=== PATIENT | female | born 1985 | race Caucasian/White ===

== ENCOUNTER 2023-12-02 10:03 | Emergency (ER) | payer BC, SELFPAY ==
[2023-12-02 10:04] VITALS: BP 137/86
--- NOTE | 2023-12-02 10:40 | ED.MUSCINJ ---
HPI-Injury
General
Chief Complaint: Musculo-Skeletal Complaint
Source: patient
Exam Limitations: none
Time Seen by Provider: 12/02/23 10:20
Travel History
Have you had any contact with someone who has COVID-19?: No
Do you have any symptoms of coronavirus? Fever > 100 degrees, chills, cough, shortness of breath, sore throat, loss of taste or smell, muscle aches, or headache?: No
History of Present Illness-Injury
Initial Injury comments:
38-year-old female presents complaining of left-sided neck pain worsening since 2 days ago. She was doing overhead dumbbell press in the gym and felt some discomfort right after she finished. Since then her pain has been getting worse. She denies
any arm numbness or weakness. No chest pain or shortness of breath. Hurts to move. Hurts to lay flat. No other complaints at this time
Past History
Past History
ED Past Medical History: None
ED Past Surgical History: None
Social History
Tobacco: Non-smoker
Drug: None
Personal:
Living: with family
Phy Exam
Physical Exam
Physical Exam:
General: Well-appearing female no respiratory distress
HEENT: Normocephalic atraumatic neck is supple
Musculoskeletal exam: Tender over the left paraspinous area cervical spine the radius the superior shoulder and the medial scapula. She has good extension and flexion of her neck however lateral bending to the left is very painful.
Neurologic: Good strength and sensation to the upper extremities
MDM/Problems Addressed
Differential Diagnosis Includes:
Neck pain. Consider cervical strain versus radiculopathy. Do not suspect bony injury.
Exam most consistent with cervical strain perhaps of trapezius muscle. Recommended continued NSAID use warm compresses and will prescribe Flexeril. Discussed role for x-rays however do not think this is bony injury.
*Critical Care Note
Total Time (30-74mins, 75-104mins- exclusive of procedures): Not Applicable
ED Attending Note
-
Portions of this chart may have been created with voice recognition software.� Occasional wrong word or��sound alike� substitutions may have occurred due to the inherent limitations of voice recognition software.
Discharge Plan
Departure
Patient Disposition: Home (Routine Discharge)
Date of Disposition: 12/02/23
Time of Disposition: 10:43
Patient with high blood pressure during this ER visit?: No
Discharge Problem:
Cervical strain
Instructions: Muscle and Bone Pain (DC)
Prescriptions:
New
cyclobenzaprine 10 mg tablet
10 mg PO TID PRN (Reason: muscle spasm) Qty: 10 0RF
No Action
amoxicillin-pot clavulanate 1 TABLET tablet
1 tab PO Q12 Qty: 14 0RF
Referrals:
Sarahi Tao DO [Family Provider] -
Activity Restrictions/Additional Instructions:
Continue with ibuprofen 600 mg every 6 or 8 hours. Continue with warm compresses. Use muscle relaxers as needed for spasm. Return here for worsening symptoms otherwise follow-up with family doctor
Interventions
Interventions:
*ED COVID-19 Vaccine History Last Done: 12/02/23 10:04
*Nursing Disposition Last Done: 12/02/23 10:55
ED-Musculoskeletal Assessment Last Done: 12/02/23 10:51
Discharge Date and Time
Discharge Date/Time: 12/02/23 10:55
== END 2023-12-02 10:55 | disposition home or self-care (01) ==
LOC: EMR 10:03
PROVIDERS: EMERGENCY PHYSICIAN Emergency Medicine; FAMILY PHYSICIAN Family Medicine
DX: S16.1XXA Strain of muscle, fascia and tendon at neck level, initial encounter (principal); X50.1XXA Overexertion from prolonged static or awkward postures, initial encounter
CPT/HCPCS: 99283

== ENCOUNTER → 2024-05-19 08:02 | Outpatient (REF) | payer OTHER, SELFPAY | LOC: WDC 08:02 | PROVIDERS: ATTENDING PHYSICIAN Obstetrics & Gynecology Gynecology; FAMILY PHYSICIAN Emergency Medicine | DX: Z12.31 Encounter for screening mammogram for malignant neoplasm of breast (principal); Z80.3 Family history of malignant neoplasm of breast | CPT/HCPCS: 77063; 77067 ==

== ENCOUNTER → 2024-05-25 10:23 | Outpatient (REF) | payer OTHER, SELFPAY | LOC: WDC 10:23 | PROVIDERS: ATTENDING PHYSICIAN Obstetrics & Gynecology Gynecology; FAMILY PHYSICIAN Emergency Medicine | DX: R92.8 Other abnormal and inconclusive findings on diagnostic imaging of breast (principal) | CPT/HCPCS: 76642 ==

== ENCOUNTER 2024-07-12 18:51 | Emergency (ER) | payer OTHER, SELFPAY ==
[2024-07-12 18:59] VITALS: BP 135/83
[2024-07-12 19:21] LABS: % Basophils 0.6 % (0-2); % Eosinophils 1.2 % (0-6); % Immature Granulocytes 0.2 % (0-0.5); % Lymphocytes 33.8 % (20.5-51.1); % Monocytes 6.2 % (1.7-9.3); Absolute Basophils 0.1 10^3/uL (0-0.2); Absolute Eosinophils 0.1 10^3/uL (0-0.7); Absolute Lymphocytes 3.5 10^3/uL (1.2-3.4); Absolute Monocytes 0.7 10^3/uL (0.1-0.6); Absolute Neutrophils 6.1 10^3/uL (1.4-6.5); Hematocrit 40.4 % (37.0-47.0); Hemoglobin 13.5 g/dL (12.0-16.0); Mean Corp Hgb Conc. 33.4 g/dL (33.0-37.0); Mean Corpuscular Hgb 29.4 pg (27.0-31.0); Mean Platelet Volume 11.1 fL (7.4-10.4); Nucleated Red Blood Cells % 0 %; Platelet Count 327 10^3/uL (130-400); Red Blood Cell Count 4.59 10^6/uL (4.20-5.40); Red Cell Dist. Width 13.4 % (11.5-14.5); White Blood Cell Count 10.4 10^3/uL (4.8-10.8)
[2024-07-12 19:34] LABS: ALT (SGPT) 21 U/L (0-35); AST (SGOT) 27 U/L (14-36); Albumin 4.6 g/dl (3.5-5.0); Alkaline Phosphatase 76 U/L (38-126); Blood Urea Nitrogen 13 mg/dl (7-17); Calcium 10.1 mg/dl (8.4-10.2); Carbon Dioxide 27 mmol/L (22-30); Chloride 103 mmol/L (98-107); Glucose 90 mg/dl (70-99); Lipase 126 U/L (23-300); Potassium 4.4 mmol/L (3.5-5.1); Sodium 139 mmol/L (135-145); Total Bilirubin 0.5 mg/dl (0.2-1.3); Total Protein 7.2 g/dl (6.3-8.2); eGFR > 60.00
--- NOTE | 2024-07-12 20:47 | ED.GENMED ---
History of Present Illness
General
Chief Complaint: Abdominal Pain
Time Seen by Provider: 07/12/24 20:24
History of Present Illness
History of Present Illness:
38-year-old female presents to the emergency department for evaluation of acute onset of right upper quadrant abdominal pain that began approximate 1 to 2 hours ago. She vomited profusely in the emergency department waiting room and states the pain
improved thereafter. No fevers or chills. Denies diarrhea or steatorrhea. She notes that she is on a GLP-1 agonist and increased her dose approximately 1 month ago. No history of abdominal surgery
Past History
Past History
ED Past Medical History: None
ED Past Surgical History: None
Social History
Tobacco: Non-smoker
Drug: None
Personal:
Living: with family
Review of Systems
Review of Systems
Allergies reviewed?: Yes
All Other Systems: ROS reviewed and negative except as documented in HPI and ROS
Phy Exam
Physical Exam
Physical Exam:
GEN: Well appearing, NAD, WDWN
HEENT: Oral mucosa moist, no scleral icterus
Cardiac: Regular rate
Lung: No respiratory distress, no tachypnea
Abdomen: Soft, minimal epigastric tenderness, otherwise grossly nontender with no rigidity or peritoneal signs
MSK: No gross deformity or injuries
Skin: Good color, no pallor or jaundice, no rashes
Neuro: AO x3, moves all extremities freely
Psych: Calm, cooperative
Course
Orders/Labs/Results
Orders:
Orders
07/12/24 18:57
Test Result ONCE
07/12/24 19:08
Complete Blood Count/With Diff Urgent
Comprehensive Metabolic Panel Urgent
HCG, Serum Qualitative Screen Urgent
Lipase Urgent
07/12/24 20:29
US Abdomen Complete/Upper Urgent
Comment:
Reason For Exam: RUQ pain
Abnormal Lab Results
07/12/24
19:08
MPV 11.1 H fL
(7.4-10.4)
Absolute Lymphs (auto) 3.5 H 10^3/uL
(1.2-3.4)
Absolute Monos (auto) 0.7 H 10^3/uL
(0.1-0.6)
07/12/24 19:08
07/12/24 19:08
Vital Signs
Initial and Last Documented VS:
Initial Vital Signs
Temp Pulse Resp BP Pulse Ox
98.5 F 60 18 135/83 100
07/12/24 18:59 07/12/24 18:59 07/12/24 18:59 07/12/24 18:59 07/12/24 18:59
Last Documented Vital Signs
Temp Pulse Resp BP Pulse Ox
98.5 F 60 18 135/83 100
07/12/24 18:59 07/12/24 18:59 07/12/24 18:59 07/12/24 18:59 07/12/24 18:59
MDM/Problems Addressed
MDM/Problems Addressed:
Ultrasound reveals biliary sludge and gallstones. While this may be a product of her GLP-1, cannot discount organic gallstone disease. Recommend she discontinue her GLP-1 in the interim until she follows up with general surgery to discuss
definitive management plan. No indication of cholecystitis that would warrant admission
*Critical Care Note
Total Time (30-74mins, 75-104mins- exclusive of procedures): Not Applicable
ED Attending Note
-
Portions of this chart may have been created with voice recognition software.� Occasional wrong word or��sound alike� substitutions may have occurred due to the inherent limitations of voice recognition software.
Discharge Plan
Departure
Patient Disposition: Home (Routine Discharge)
Date of Disposition: 07/12/24
Time of Disposition: 21:33
Patient with high blood pressure during this ER visit?: No
Discharge Problem:
Biliary colic
Instructions: Gallstones (DC), Low-fat diet
Prescriptions:
No Action
amoxicillin-pot clavulanate 1 TABLET tablet
1 tab PO Q12 Qty: 14 0RF
cyclobenzaprine 10 mg tablet
10 mg PO TID PRN (Reason: muscle spasm) Qty: 10 0RF
Referrals:
Leana Baldwin MD [Family Provider] -
Lj Varner MD [Active] - Call in 1-3 days for appt
Activity Restrictions/Additional Instructions:
Call surgery office tomorrow
Adhere to a low fat diet until surgery follow up
Consider stopping or reducing your Zepbound until you have seen the surgery team
Interventions
Interventions:
*Risk Screen - Suicide Last Done: 07/12/24 18:59
*General Assessment Last Done: 07/12/24 18:59
ED- Fall Risk Assessment Last Done: 07/12/24 20:13
*ED COVID-19 Vaccine History Last Done: 07/12/24 18:59
VJ-Docqao-Ytfmcarbqb Assessment Last Done: 07/12/24 20:13
Discharge Date and Time
Print Language: CROATIAN
[2024-07-12 21:21] LABS: HCG, Serum Qualitative Screen Negative
[2024-07-12 21:43] VITALS: BP 128/74
== END 2024-07-12 22:09 | disposition home or self-care (01) ==
LOC: EMR 18:51
PROVIDERS: Emergency Medicine; EMERGENCY PHYSICIAN Emergency Medicine; FAMILY PHYSICIAN Emergency Medicine
DX: K80.70 Calculus of gallbladder and bile duct without cholecystitis without obstruction (principal); R10.11 Right upper quadrant pain
CPT/HCPCS: 99284; 76700; 80053; 83690; 84703; 85025

== ENCOUNTER 2024-07-20 22:53 | Day surgery (SDC) | payer OTHER, SELFPAY ==
[2024-07-20] VITALS (7 sets, daily range): BP systolic 91–128; BP diastolic 51–95
--- NOTE | 2024-07-20 20:06 | ED.GENMED ---
History of Present Illness
General
Chief Complaint: Abdominal Pain
Source: patient
Exam Limitations: none
Time Seen by Provider: 07/20/24 19:50
History of Present Illness
History of Present Illness:
This is a 38 year old female that comes in with c/o abd pain. Patient is due to have her Gallbladder out on Jul 31. Tonight around 5pm states that she c/o bd pain and kept getting worse. States that she is vomiting, feels SOB with the pain
and dizzy. Denies any fever, chills, chest pain, diarrhea, headache, urinary burning.
Past History
Past History
ED Past Medical History: GERD and Other (Migraines, )
ED Past Surgical History: None
Social History
Tobacco: Non-smoker
Alcohol: None
Drug: None
Personal:
Living: with family
Review of Systems
Review of Systems
All Other Systems: ROS reviewed and negative except as documented in HPI and ROS
Constitutional: Reports no symptoms; Denies fever or chills
EENT: Reports no symptoms
Respiratory: Reports trouble breathing (with pain); Denies cough
Cardiac: Reports no symptoms; Denies chest pain
ABD/GI: Reports abdominal pain, nausea and vomiting; Denies diarrhea
: Reports no symptoms; Denies dysuria, frequency or urgency
Musculoskeletal: Reports no symptoms
Skin: Reports no symptoms
Neurological: Reports dizzy; Denies headache
Psychiatric: Reports no symptoms
Phy Exam
General Physical Exam
General Presentation: moderate distress
General age: appears stated age
General Skin: cool and pale
General Habitus: normal
General Mental: alert
General Hydration: appears well hydrated
ENT Exam
ENT Exam: TM's normal, pharynx normal and neck supple
Eye Exam
Eye Exam: EOMI
Cardiovascular Exam
Cardiovascular Exam: no edema, no murmur, normal peripheral pulses and bradycardia
Pulmonary Exam
Pulmonary Exam: lungs clear, no respiratory distress, no rales, chest non tender, no crackles, no rhonchi, no wheezing and no cough
Gastrointestinal Exam
Gastrointestinal Exam: normal bowel sounds, soft, no organomegaly, no pulsatile mass, non distended and tender (Epigastric and right upper abd pain)
Musculoskeletal Exam
Musculoskeletal Exam: full ROM and no edema
Skin Exam
Skin Exam: no rash, no petechia, pallor and other (Cool)
Psychiatric Exam
Psychiatric Exam: normal mood/affect
Course
Orders/Labs/Results
Orders:
Orders
07/20/24 20:05
Urinalysis Reflex To Culture Urgent
0.9% Sodium Chloride 1000 ml [Nss] 1,000 ml IV BOLUS
HYDROmorphone [Dilaudid] 1 mg IV NOW STA
Ondansetron Injectable [Zofran] 4 mg IV NOW STA
07/20/24 20:06
Test Result ONCE
US Abdomen Limited Urgent
Reason For Exam: Upper right abd pain, CHOLELITHIASIS
07/20/24 20:16
Complete Blood Count/With Diff Urgent
Comprehensive Metabolic Panel Urgent
HCG, Serum Qualitative Screen Urgent
Lipase Urgent
07/20/24 22:04
Piperacillin/Tazo 3.375 Gram [Zosyn] 3.375 gram in 50 ml IV NOW
Abnormal Lab Results
07/20/24
20:16
RBC 4.01 L 10^6/uL
(4.20-5.40)
Hgb 11.6 L g/dL
(12.0-16.0)
Hct 33.9 L %
(37.0-47.0)
MPV 11.7 H fL
(7.4-10.4)
Absolute Lymphs (auto) 3.9 H 10^3/uL
(1.2-3.4)
Glucose 122 H mg/dl
(70-99)
AST 73 H U/L
(14-36)
ALT 42 H U/L
(0-35)
07/20/24 20:16
07/20/24 20:16
H/H slightly low. Hyperglycemia, AST/ALT elevation. Lipase normal at 136. HCG negative.
Vital Signs
Initial and Last Documented VS:
Initial Vital Signs
Temp Pulse Resp BP Pulse Ox
98.0 F 51 14 93/51 100
07/20/24 19:44 07/20/24 19:44 07/20/24 19:44 07/20/24 19:44 07/20/24 19:44
Last Documented Vital Signs
Temp Pulse Resp BP Pulse Ox
98 F 39 15 111/64 100
07/20/24 21:00 07/20/24 21:45 07/20/24 21:45 07/20/24 21:30 07/20/24 20:14
MDM/Problems Addressed
Differential Diagnosis Includes:
gallbladder disease,
MDM/Problems Addressed:
This is a 38 year old female that comes in with c/o abd pain and vomiting. states that this started at 5pm and has continued to get worse. States that she is to have her Gallbladder out on Jul [address] Cooper
Will check labs and get Ultrasound
Back into see patient. Explained that she would be admitted as her blood work shows that her liver enzymes are going up and that she has dilation of the common bile duct which is most likely due to a stone. Gallbladder is distended with stones and
sludge. Spoke with Surgery and since there is Choledocholithiasis patient will go to hospitalist as she may need to see GI first. Hospitalist notified.
Chronic conditions affecting care:
Gallbladder disease
Acute Exacerbation and/or Progression of Chronic Illness:
Gallbladder disease
*Radiology
Radiology exam reviewed: radiology read reviewed (US-There are gallstones and sludge with a distended gallbladder and sonogrphic [place], suspicious for acute cholecystitis. There is dilation of the common bile duct neasuring 7mm which may represent
Choledocholithiasis, however no discrete common duct stone is seen within the visualized portion of ) and other (US cont- the common bile duct. Recommend correlation with lab valuse for possible biliary obstruction. Hepatic steatosis with an
unchanged 3.2cm echogenic focus in the right hepatic lobe, possible hemangioma although further evaluation with nonemergent MRI may be considered. )
*Pulse Oximetry
Patient hypoxic: no
*EKG
Interpreted by ED Provider?: NA
Rate: EKG- N/A
*Fruit Harvest Machine Operator Interpretation
Rate: bradycardiac
Heart Rate: 48
Rhythm: sinus
*Critical Care Note
Total Time (30-74mins, 75-104mins- exclusive of procedures): Not Applicable
ED Attending Note
-
Portions of this chart may have been created with voice recognition software.� Occasional wrong word or��sound alike� substitutions may have occurred due to the inherent limitations of voice recognition software.
Discharge Plan
Departure
Patient Disposition: Admit
Date of Disposition: 07/20/24
Time of Disposition: 22:08
Admit to: Med/Surg
Presentation/result/management discussed w/ accepting MD/DO: Hospitalist
Condition: Good
Covid-19: Not Applicable
Discharge Problem:
Choledocholithiasis, Acute cholecystitis, Elevated liver enzymes
Prescriptions:
No Action
cyanocobalamin (vitamin B-12) 1,000 mcg Tablet
1,000 mcg PO DAILY
magnesium 200 mg Tablet
200 mg PO HS
cholecalciferol (vitamin D3) 25 mcg (1,000 unit) Tablet
25 mcg PO DAILY
omega 5-rhf-xtx-fish oil [Fish Oil] 1,000 (120-180) mg Capsule
1 cap PO DAILY
Referrals:
Leana Baldwin MD [Family Provider] -
Interventions
Interventions:
*Risk Screen - Suicide Last Done: 07/20/24 19:44
*General Assessment Last Done: 07/20/24 19:44
*Neglect/Abuse Screening Last Done: 07/20/24 19:44
ED- Fall Risk Assessment Last Done: 07/20/24 20:06
YO-Swappx-Hhrhigjidy Assessment Last Done: 07/20/24 20:06
Discharge Date and Time
Print Language: ARGENTINE
[2024-07-20] MEDS: NSS 1000 IV (20:11)
[2024-07-20] MEDS: DILAUDID 1 MG IV (20:11)
[2024-07-20] MEDS: ZOFRAN 4 MG IV (20:11)
[2024-07-20 20:24] LABS: % Basophils 0.7 % (0-2); % Eosinophils 1.3 % (0-6); % Immature Granulocytes 0.3 % (0-0.5); % Lymphocytes 36.1 % (20.5-51.1); % Monocytes 5.8 % (1.7-9.3); % Neutrophils 55.8 % (42.2-75.2); Absolute Basophils 0.1 10^3/uL (0-0.2); Absolute Eosinophils 0.1 10^3/uL (0-0.7); Absolute Lymphocytes 3.9 10^3/uL (1.2-3.4); Absolute Monocytes 0.6 10^3/uL (0.1-0.6); Hematocrit 33.9 % (37.0-47.0); Hemoglobin 11.6 g/dL (12.0-16.0); Mean Corp Hgb Conc. 34.2 g/dL (33.0-37.0); Mean Corpuscular Hgb 28.9 pg (27.0-31.0); Mean Corpuscular Volume 84.5 fL (81.0-99.0); Mean Platelet Volume 11.7 fL (7.4-10.4); Nucleated Red Blood Cells % 0 %; Platelet Count 285 10^3/uL (130-400); Red Blood Cell Count 4.01 10^6/uL (4.20-5.40); Red Cell Dist. Width 13.5 % (11.5-14.5); White Blood Cell Count 10.7 10^3/uL (4.8-10.8)
[2024-07-20 20:35] LABS: HCG, Serum Qualitative Screen Negative
[2024-07-20 20:37] LABS: ALT (SGPT) 42 U/L (0-35); AST (SGOT) 73 U/L (14-36); Albumin 3.9 g/dl (3.5-5.0); Alkaline Phosphatase 84 U/L (38-126); Blood Urea Nitrogen 14 mg/dl (7-17); Calcium 9.5 mg/dl (8.4-10.2); Carbon Dioxide 24 mmol/L (22-30); Chloride 106 mmol/L (98-107); Glucose 122 mg/dl (70-99); Lipase 136 U/L (23-300); Potassium 3.7 mmol/L (3.5-5.1); Sodium 140 mmol/L (135-145); Total Bilirubin 0.4 mg/dl (0.2-1.3); Total Protein 6.3 g/dl (6.3-8.2); eGFR > 60.00
[2024-07-20] MEDS: ZOSYN 50 IV (22:05)
--- NOTE | 2024-07-20 22:10 | HPS.HSE ---
Family Physician
-
Family Physician: Leana Baldwin MD
Chief Complaint
-
abdominal pain
History of Present Illness
Ms. Margret Brasher is a 38 yo woman with hx GERD, recent diagnosis of biliary colic with plans for outpatient cholecystectomy on 07/31 presents to the ER with abdominal pain.
Pain came on while food shopping. She describes significant epigastric pain radiating to the right and back. Since last ER visit she has been very strict about a low fat diet. No fevers. + chills. + nausea and vomiting. She received Dilaudid
and Zofran in the ER a couple of hours ago. She states over past 30 minutes she feels significantly better.
No chest pain or shortness of breath. No rash, no LE swelling.
Medical History
Past Medical History
Past Medical History: Reports Other (GERD)
Past Surgical History: Reports None
Social History
Tobacco: Non-smoker
Alcohol: None
Family History
Family History: Not pertinent
Allergies / Home Medications
Allergies reflects when Allergies were last updated in [facility].
Home Medications with original date entered in [facility]
Allergy/Medication List:
Allergies
Allergy/AdvReac Type Severity Reaction Status Date / Time
No Known Allergies Allergy Verified 07/20/24 20:06
Home Medications
cholecalciferol (vitamin D3) 25 mcg (1,000 unit) tablet 25 mcg PO DAILY 07/20/24
cyanocobalamin (vitamin B-12) 1,000 mcg tablet 1,000 mcg PO DAILY 07/20/24
magnesium 200 mg tablet 200 mg PO HS 07/20/24
omega 1-plc-jtj-fish oil 1,000 mg (120 mg-180 mg) capsule (Fish Oil) 1 cap PO DAILY 07/20/24
Review of Systems
-
History Source: Patient
A 12 point ROS was completed and negative except as noted: Yes
Physical Exam
Vital Signs
Vital Signs
Temp Pulse Resp BP Pulse Ox
98 F 39 15 111/64 100
07/20/24 21:00 07/20/24 21:45 07/20/24 21:45 07/20/24 21:30 07/20/24 20:14
Physical Exam
General: No Apparent Distress
HEENT: PERRLA
Respiratory: Clear; No Wheezes
Cardiac: S1/S2 and Regular Rhythm
GI: Soft and Other (mildly tenderness RUQ pain (states significantly improved))
Musculoskeletal: No Edema
Skin: Warm and Dry; No Rash
Neuro: AO x 3
Psych: Calm
Laboratory Results
-
07/20/24 20:16
07/20/24 20:16
Laboratory Results
Total Bilirubin 0.4 mg/dl (0.2-1.3) 07/20/24 20:16
AST 73 U/L (14-36) H 07/20/24 20:16
ALT 42 U/L (0-35) H 07/20/24 20:16
Alkaline Phosphatase 84 U/L (38-126) 07/20/24 20:16
Lipase 136 U/L (23-300) 07/20/24 20:16
Data Reviewed
-
Diagnostic Radiology: Report Reviewed by me
Lab Data: Labs Reviewed by me
Impression/Plan
-
Ms. Margret Brasher is a 38 yo woman with hx GERD, recent diagnosis of biliary colic with plans for outpatient cholecystectomy on 07/31 presents to the ER with abdominal pain found to have cholecystitis. Pain with significant improvement, possible
passed stone.
Triage VS: T 98.0, P 51, RR 14, BP 93/51, SpO2 100%
LABS: WBC 10.7, Hg 11.6, PLT 285, Na 140, K+ 3.7, Cl 106, CO2 26, B Un 14, Cr 0.8, Glucose 122, T. Bili 0.4, AST 73, ALT 42, Lipase 136
HCG negative
Abdominal US:
IMPRESSION:
There are gallstones and sludge with a distended gallbladder and sonographic Omer's, suspicious for acute cholecystitis. There is dilation of the common bile duct measuring 7 mm which may represent choledocholithiasis, however no discrete common
duct stone is seen within the visualized portion of the common bile duct. Recommend correlation with lab values for possible biliary obstruction.
Hepatic steatosis with an unchanged 3.2 cm echogenic focus in the right hepatic lobe, possible hemangioma although further evaluation with nonemergent MRI may be considered.
MAR: IV dilaudid, 1L IVF, IV Zofran, IV Zosyn
Cholecystitis
-rediscussed case with Dr. Yeung, with normal T. Bili and improvement in symptoms (likely passed stone), no need for MRI/MRCP
-admit to medicine
-surgery consult
-NPO for Lap-Agueda tomorrow morning
-dilaudid/zofran PRN
-IVF
-IV Cef/Flagyl - can stop post-op
3.2 echogenic focus on US
-outpatient MRI
DVT PPx SCD pre-op
FULL CODE
[2024-07-20 22:27] LABS: Urine Albumin Negative (Neg - Trace); Urine Bilirubin Negative (Negative); Urine Character Clear (Clear); Urine Color Yellow; Urine Glucose Negative (Negative); Urine Ketone 2+ (Negative); Urine Leukocyte Trace (Negative); Urine Nitrite Negative (Negative); Urine Occult Blood Negative (Negative); Urine Specific Gravity 1.025 (<1.030); Urine Urobilinogen Negative (Neg - 1+)
[2024-07-20 22:40] LABS: Urine Red Blood Cell 0-2 /HPF (0-2); Urine Squamous Cell >30 /LPF (Few)
[2024-07-20 22:41] LABS: Urine Bacteria Many (Negative); Urine White Cell 0-2 /HPF (0-5)
[2024-07-21] VITALS (15 sets, daily range): BP systolic 99–132; BP diastolic 49–84; BMI 27.3
--- NOTE | 2024-07-21 00:15 | PTCARENOTE ---
Pt admitted to room 2138 from ED at this time, aaox3, denies abd pain, nausea/vomiting. Pt oriented to room and call light.
[2024-07-21] MEDS: NSS 1000 IV ×2 (00:21→17:36)
[2024-07-21] MEDS: FLAGYL 500 MG 100 IV ×3 (05:08→22:54)
[2024-07-21] MEDS: ROCEPHIN 1000 MG IV (05:11)
[2024-07-21] MEDS: STERILE WATER FOR INJECTION 10 ML IV (05:11)
[2024-07-21 07:17] LABS: % Basophils 0.6 % (0-2); % Eosinophils 0.5 % (0-6); % Immature Granulocytes 0.3 % (0-0.5); % Lymphocytes 32.6 % (20.5-51.1); % Monocytes 7.6 % (1.7-9.3); % Neutrophils 58.4 % (42.2-75.2); Absolute Lymphocytes 2.1 10^3/uL (1.2-3.4); Absolute Monocytes 0.5 10^3/uL (0.1-0.6); Absolute Neutrophils 3.7 10^3/uL (1.4-6.5); Hematocrit 32.2 % (37.0-47.0); Hemoglobin 10.8 g/dL (12.0-16.0); Mean Corp Hgb Conc. 33.5 g/dL (33.0-37.0); Mean Corpuscular Hgb 29.5 pg (27.0-31.0); Nucleated Red Blood Cells % 0 %; Red Blood Cell Count 3.66 10^6/uL (4.20-5.40); Red Cell Dist. Width 13.6 % (11.5-14.5); White Blood Cell Count 6.3 10^3/uL (4.8-10.8)
[2024-07-21 07:31] LABS: Mean Platelet Volume 11.7 fL (7.4-10.4); Platelet Count 213 10^3/uL (130-400)
[2024-07-21 08:03] LABS: ALT (SGPT) 415 U/L (0-35); AST (SGOT) 628 U/L (14-36); Albumin 3.3 g/dl (3.5-5.0); Alkaline Phosphatase 116 U/L (38-126); Blood Urea Nitrogen 11 mg/dl (7-17); Calcium 8.7 mg/dl (8.4-10.2); Carbon Dioxide 22 mmol/L (22-30); Chloride 110 mmol/L (98-107); Estimated Creatinine Clearance 122 ml/min; Glucose 78 mg/dl (70-99); Potassium 4.5 mmol/L (3.5-5.1); Sodium 142 mmol/L (135-145); Total Bilirubin 1.3 mg/dl (0.2-1.3); Total Protein 5.6 g/dl (6.3-8.2); eGFR > 60.00
--- NOTE | 2024-07-21 09:15 | CON.GS ---
Addendum entered and electronically signed by Wayne De Souza MD 07/21/24 09:23:
Correction
-- Abx: Ceftriaxone and Flagyl
Original Note:
Medical History
-
Chief Complaint: Abdominal pain
History of Present Illness:
Patient is a 38 yo F with a PMH of obesity with recent usage of Zepbound is loss of 40 to 50 pounds who re-presented to the ER with epigastric and RUQ abdominal pain. She states that her symptoms began acutely yesterday afternoon while grocery
shopping. She describes severe epigastric and RUQ abdominal pain which radiates to her back. Associated nausea and vomiting. Associated chills. She denies fevers, jaundice, pale stools, or tea colored urine. She had a previous attack on 07/12
prompting ER evaluation. Her symptoms improved at that time prompting discharge with outpatient referral. She is scheduled for a robotic cholecystectomy with Dr. Cooper on 07/31. During that admission she does report some mild jaundice and darker
urine. She denies any prior attacks.
Past Medical History
Past Medical History: Other (Obesity)
Past Surgical History: None
Social History
Tobacco: Non-Smoker
Alcohol: None
Drug: None
Personal:
Living: With Family
Family History
Family History: Reviewed & Not Pertinent
Allergies / Home Medications
Allergy/AdvReac Type Severity Reaction Status Date / Time
No Known Allergies Allergy Verified 07/20/24 20:06
�Medication �Instructions �Recorded �Confirmed �Type
cholecalciferol (vitamin D3) 25 25 mcg PO DAILY Supplement 07/20/24 07/20/24 History
mcg (1,000 unit) tablet
cyanocobalamin (vitamin B-12) 1,000 mcg PO DAILY Supplement 07/20/24 07/20/24 History
1,000 mcg tablet
magnesium 200 mg tablet 200 mg PO HS Supplement 07/20/24 07/20/24 History
omega 5-uzp-nbz-fish oil 1,000 mg 1 cap PO DAILY Supplement 07/20/24 07/20/24 History
(120 mg-180 mg) capsule (Fish Oil)
Review of Systems
-
A 10 point review of systems was completed, and was negative except as per HPI.
Physical Exam
Vital Signs
Temp Pulse Resp BP Pulse Ox
98.5 F 44 14 99/54 97
07/21/24 08:35 07/21/24 08:35 07/21/24 08:35 07/21/24 08:35 07/21/24 08:35
07/20/24 07/21/24 07/22/24
06:59 06:59 06:59
Actual Weight 88.904 kg
Body Mass Index (BMI) 27.3
Lab Results
07/21/24 06:37
07/21/24 06:37
WBC 6.3 10^3/uL (4.8-10.8) 07/21/24 06:37
Hgb 10.8 g/dL (12.0-16.0) L 07/21/24 06:37
Hct 32.2 % (37.0-47.0) L 07/21/24 06:37
Plt Count 213 10^3/uL (130-400) D 07/21/24 06:37
Abs Immat Gran (auto) 0.0 10^3/uL (0-0.05) 07/21/24 06:37
Neutrophils % 58.4 % (42.2-75.2) 07/21/24 06:37
Physical Exam
General: Well Developed, Well Nourished and No Apparent Distress
HEENT: Normocephalic and Anicteric
GI: Soft, Non Distended, Tender (Mild epigastric and RUQ, negative Omer's sign) and Other (Non-peritoneal)
Musculoskeletal: No Edema
Skin: Warm and Dry
Neuro: Nonfocal/Grossly Intact
Data Reviewed
-
Ultrasound: Image Personally Visualized and interpreted and Report Reviewed by me
Labs: Labs Reviewed by me
Assessment / Plan
-
Patient is a 38 yo F p/w symptomatic cholelithiasis with possible choledocholithiasis
The natural history and pathophysiology of biliary and stone disease was discussed. Anatomy was reviewed. Workup thus far including labs and ultrasound were reviewed. Labs this AM notable for an increase in her LFTs and bilirubin. Ultrasound
notable for a mildly dilated CBD. Options for management at this time including further workup with MRI and potential GI consultation versus proceeding with cholecystectomy and cholangiogram were considered and discussed. The pros and cons of both
approaches was discussed. Recommended plan for laparoscopic cholecystectomy with cholangiogram.
Plan for laparoscopic cholecystectomy with cholangiogram. The procedure itself, as well as the risks, benefits, and alternatives was discussed. Specifically, we discussed the risks of bleeding, infection, injury to surrounding structures (bowel,
bile ducts), CBD injury, need for open procedure. We also discussed the potential for persisting choledocholithiasis and need for postoperative GI consultation and ERCP. Typical post procedure recovery including pain management and the 10 to 20%
risks of fluctuations in GI function was discussed. All questions answered. Consent signed.
-- Laparoscopic cholecystectomy with cholangiogram
-- NPO, IVF
-- Antibiotics: Zosyn
-- Pain control: Tylenol and IV Dilaudid PRN
--- NOTE | 2024-07-21 09:23 | W.SUR.PREOP ---
Pre-Operative Surgical Note
-
I have examined this patient prior to the performance of the scheduled procedure.
The patient's condition is unchanged from the time of the current History and
Physical and the patient is able to undergo the scheduled procedure.
--- NOTE | 2024-07-21 10:33 | CM ---
CM reviewed medical records. Patient does not have a history of VN or SNF. Patient has a PCP and medication coverage. CM will remains available for any discharge needs.
PLAN: Home.
--- NOTE | 2024-07-21 10:44 | W.PN.HOSP.TC ---
Today's Communication/Plan
-
Monitor vital signs
see plan
Pain control
Monitor on telemetry
check TSH and cortisol in am
abx
monitor LFT's
Assessment / Plan
Assessment / Plan
General: No Apparent Distress
HEENT: PERRLA
Respiratory: Clear; No Wheezes
Cardiac: S1/S2 and Regular Rhythm
GI: Soft and Other (mildly tenderness RUQ pain)
Musculoskeletal: No Edema
Skin: Warm and Dry; No Rash
Neuro: AO x 3
Psych: Calm
Acute Cholecystitis
-case was discussed with surgery, with normal T. Bili and improvement in symptoms (likely passed stone), no need for MRI/MRCP
Surgery following
Status post lap cynthia 07/21 with cholangio-. Per surgery, if LFTs are elevated tomorrow then consider GI evaluation
-dilaudid/zofran PRN
-IVF
-IV Cef/Flagyl
Hepatic steatosis
Monitor
Bradycardia
Check EKG with sinus bradycardia with PVC
Monitor on telemetry
check TSH with free t4 and cortisol in am
Denies lightheadedness, chest pain, shortness
3.2 echogenic focus on US
-outpatient MRI
DVT PPx SCD
FULL CODE
Anticipated Discharge: Within 24 hours
Subjective/Interval History
-
Date of Service: July 21, 2024
has pain
Objective Data
-
Labs:
Laboratory Results
07/21/24
06:37
WBC 6.3
Hgb 10.8 L
Hct 32.2 L
Plt Count 213 D
Sodium 142
Potassium 4.5
Chloride 110 H
Carbon Dioxide 22
BUN 11
Creatinine 0.7
Glucose 78
Calcium 8.7
Total Bilirubin 1.3
AST 628 H*
ALT 415 H
Alkaline Phosphatase 116
Vital Signs:
Vital Signs
Temp Pulse Resp BP Pulse Ox
98.5 F 44 14 99/54 97
07/21/24 08:35 07/21/24 08:35 07/21/24 08:35 07/21/24 08:35 07/21/24 08:35
I&O
07/20/24 07/21/24 07/22/24
06:59 06:59 06:59
Intake Total 660 / 660
Balance 660 / 660
--- NOTE | 2024-07-21 11:58 | W.IMMPOSTOP ---
Surgical Immed Post Op Note
-
Primary Surgeon: Nolvia
Assisting Surgeon: GEE Perry
Pre-op Diagnosis: Choledocholithiasis
Post-op Diagnosis: Choledocholithiasis
Procedure Performed: Laparoscopic cholecystectomy with IOC
Anesthesia Type: General
Specimen / Cultures:
1. Gallbladder
Estimated Blood Loss: 3 cc
Complications: None
Operative Findings:
1. Distended and flacid GB, mild wall thickening and edema
2. Critical view of safety, posterior dominant cystic artery
3. IOC with filling defects which disappeared with Glucagon and flushing, no obstruction
4. Artery clips, duct clips and PDS Endoloop
Plan:
-- LFD
-- Repeat CMP in AM, if still elevated would consult GI
[2024-07-21] MEDS: DILAUDID 0.25 MG IV (12:34)
[2024-07-21] MEDS: DILAUDID 0.5 MG IV (13:11)
[2024-07-21] MEDS: LOVENOX 40 MG SC (17:32)
[2024-07-21] MEDS: TYLENOL 650 MG PO (20:22)
[2024-07-22] MEDS: TYLENOL 650 MG PO (03:23)
[2024-07-22 03:48] VITALS: BP 127/71
[2024-07-22] MEDS: FLAGYL 500 MG 100 IV (05:21)
[2024-07-22] MEDS: ROCEPHIN 1000 MG IV (05:21)
[2024-07-22] MEDS: STERILE WATER FOR INJECTION 10 ML IV (05:22)
[2024-07-22 07:30] VITALS: BP 117/66
[2024-07-22] MEDS: NSS IV (09:08)
[2024-07-22 09:55] LABS: ALT (SGPT) 284 U/L (0-35); AST (SGOT) 138 U/L (14-36); Albumin 3.4 g/dl (3.5-5.0); Alkaline Phosphatase 115 U/L (38-126); Blood Urea Nitrogen 10 mg/dl (7-17); Calcium 8.8 mg/dl (8.4-10.2); Carbon Dioxide 21 mmol/L (22-30); Chloride 107 mmol/L (98-107); Estimated Creatinine Clearance 107 ml/min; Glucose 95 mg/dl (70-99); Magnesium 1.9 mg/dl (1.6-2.3); Potassium 3.9 mmol/L (3.5-5.1); Sodium 139 mmol/L (135-145); Total Bilirubin 0.4 mg/dl (0.2-1.3); Total Protein 5.7 g/dl (6.3-8.2); eGFR > 60.00
[2024-07-22 10:06] LABS: % Basophils 0.5 % (0-2); % Immature Granulocytes 0.5 % (0-0.5); % Lymphocytes 17.2 % (20.5-51.1); % Monocytes 7.8 % (1.7-9.3); Absolute Lymphocytes 1.5 10^3/uL (1.2-3.4); Absolute Monocytes 0.7 10^3/uL (0.1-0.6); Absolute Neutrophils 6.4 10^3/uL (1.4-6.5); Hematocrit 32.1 % (37.0-47.0); Hemoglobin 10.9 g/dL (12.0-16.0); Mean Corpuscular Hgb 29.5 pg (27.0-31.0); Mean Corpuscular Volume 86.8 fL (81.0-99.0); Mean Platelet Volume 12.5 fL (7.4-10.4); Nucleated Red Blood Cells % 0 %; Platelet Count 206 10^3/uL (130-400); Red Cell Dist. Width 13.6 % (11.5-14.5); White Blood Cell Count 8.7 10^3/uL (4.8-10.8)
[2024-07-22 10:16] LABS: Cortisol, Random 1.1 ug/dl; TSH Reflex To Free T4 0.36 uIU/ml (0.47-4.68)
[2024-07-22 10:44] LABS: Free T4 1.18 ng/dl (0.78-2.19)
[2024-07-22 11:07] VITALS: BP 120/75
--- NOTE | 2024-07-22 11:12 | W.PN.HOSP.TC ---
Addendum entered and electronically signed by Torey Kline MD 07/22/24 12:36:
Time of discharge 36 minutes
Original Note:
Today's Communication/Plan
-
Monitor vital signs
see plan
Discharge today if okay with surgery
outpatient endocrinology f/u
Assessment / Plan
Assessment / Plan
General: No Apparent Distress
HEENT: PERRLA
Respiratory: Clear; No Wheezes
Cardiac: S1/S2 and Regular Rhythm
GI: Soft and Other (mildly tenderness RUQ pain)
Musculoskeletal: No Edema
Skin: Warm and Dry; No Rash
Neuro: AO x 3
Psych: Calm
Acute Cholecystitis
-case was discussed with surgery, with normal T. Bili and improvement in symptoms (likely passed stone), no need for MRI/MRCP
Surgery following
Status post lap cynthia 07/21 with cholangio-. LFTS slowly improving.
-dilaudid/zofran PRN
on abx
Hepatic steatosis
Monitor
Bradycardia
EKG with sinus bradycardia with PVC
Monitor on telemetry
Per patient she recently had TSH and cortisol with her physician and it was normal. Advised patient to follow-up with PCP and possible cardiology outpatient
Denies chest pain, shortness
3.2 echogenic focus on US
-outpatient MRI
DVT PPx SCD
FULL CODE
Anticipated Discharge: Today
Subjective/Interval History
-
Date of Service: July 22, 2024
denies nausea
Objective Data
-
Labs:
Laboratory Results
07/22/24
08:29
WBC 8.7
Hgb 10.9 L
Hct 32.1 L
Plt Count 206
Sodium 139
Potassium 3.9
Chloride 107
Carbon Dioxide 21 L
BUN 10
Creatinine 0.8
Glucose 95
Calcium 8.8
Total Bilirubin 0.4
AST 138 H
ALT 284 H
Alkaline Phosphatase 115
Vital Signs:
Vital Signs
Temp Pulse Resp BP Pulse Ox
98.5 F 46 20 120/75 97
07/22/24 11:07 07/22/24 11:07 07/22/24 11:07 07/22/24 11:07 07/22/24 11:07
I&O
07/21/24 07/22/24 07/23/24
06:59 06:59 06:59
Intake Total 660 / 660 4130 / 4130
Balance 660 / 660 4130 / 4130
--- NOTE | 2024-07-22 12:06 | W.PN.GS2 ---
Addendum entered and electronically signed by Lorne Carrillo MD 07/22/24 13:05:
I saw and examined the patient.
The INFORMATION SERVICES MANAGER's note was reviewed and I agree with the note.
Comment:
Doing well, tolerating diet, pain controlled.
AFVSS, ABD soft, nondistended, appropriately tender, incisions well-approximated without erythema or drainage
� Continue low-fat diet
� Continue pain control with Tylenol, Toradol, Oxy and Dilaudid as needed
� No further antibiotics
� OOB/IS
� Okay for discharge
Original Note:
Today's Communication / Plan
-
dispo planning
Assessment / Plan
-
38 yo female presenting with symptomatic cholelithiasis now POD #1 lap cholecystectomy with IOC demonstrating choledocholithiasis, able to be cleared intraoperatively
AFVSS
Following expected post operative course
Improvement in LFT's
--Continue current diet
--Analgesics as needed
--OOB/Ambulate
--Ok for discharge from surgical standpoint
Subjective Data
-
Date of Service: July 22, 2024
Patient seen and examined at bedside with Dr. Carrillo. Denies n/v. Tolerating diet. Passing flatus. Incisional soreness present, more muscular than anything.
Objective Data
-
Intake and Output
07/21/24 07/22/24 07/23/24
06:59 06:59 06:59
Intake Total 660 / 660 4130 / 4130
Balance 660 / 660 4130 / 4130
Intake:
Oral fluids 1740 / 1740
IV fluids (Total) 560 / 560 219 / 2190
Normosol 350 / 350
IV piggybacks 100 / 100 200 / 200
Other:
Number of approximated MODERATE 2 4
amounts of urine
Vital Signs
Temp Pulse Resp BP Pulse Ox
98.5 F 46 20 120/75 97
07/22/24 11:07 07/22/24 11:07 07/22/24 11:07 07/22/24 11:07 07/22/24 11:07
Lab Results
07/22/24 08:29
07/22/24 08:
Calcium 8.8 mg/dl (8.4-10.2) 07/22/24 08:
Magnesium 1.9 mg/dl (1.6-2.3) 07/22/24 08:
Total Bilirubin 0.4 mg/dl (0.2-1.3) 07/22/24 08:29
AST 138 U/L (14-36) H 07/22/24 08:29
ALT 284 U/L (0-35) H 07/22/24 08:29
Alkaline Phosphatase 115 U/L (38-126) 07/22/24 08:29
Total Protein 5.7 g/dl (6.3-8.2) L 07/22/24 08:
Albumin 3.4 g/dl (3.5-5.0) L 07/22/24 08:29
Physical Exam
-
NAD
ABD soft, minimal incisional tenderness, ND
Incisions well approximated, dry and intact glue
--- NOTE | 2024-07-22 12:36 | W.DCSUMMARY ---
Discharge Summary
Discharge Data
Date of Admission: 07/20/24
Date of Discharge: 07/22/24
-
Pending Results: No
Hospital Course
38-year-old female with past medical history of choledocholithiasis came to the hospital with abdominal pain known to have acute cholecystitis. When patient was admitted it appeared that she passed the CBD stone and her pain continue to improve.
Her LFTs however still elevated. She was seen by surgery and was taken for laparoscopic with cholecystectomy. From cholangiogram it did not appear that she had retained any common bile duct stone so her LFTs were monitored. The next day her LFTs
continue to improve and she had no pain. While she was hospitalized she also had bradycardia with which appeared sinus in nature along with some PVCs. She was instructed to follow-up with her PCP outpatient. On imaging she also had 3.2 cm
echogenic focus in the right hepatic lobe for which she was instructed to get MRI of the abdomen outpatient. Postcholecystectomy, she was able to tolerate low-fat diet and was deemed stable to be discharged home with instructions to follow-up with
all the physicians outpatient.
Discharge Plan
-
Patient Disposition: Home (Routine Discharge)
Discharge Diagnosis/Procedures: Acute cholecystitis status post laparoscopic cholecystectomy with intraoperative cholangiogram
Sinus bradycardia
Diet: Regular and Low Fat
Additional Diets: If issues with bloating, crampy abdominal pain, or diarrhea follow a low-fat diet
Activity: No strenuous activity
Additional Activity: No heavy lifting (>20 lbs) or strenuous activities for 2 weeks postoperatively
Driving Restrictions: No driving if to sore or taking narcotics
Bathing Restrictions: OK to Shower
Wound Care: Keep incisions clean and dry. Glue will flake off in 2 to 3 weeks. Stitches will dissolve. Use ice to the abdomen to reduce any bruising or swelling.
Activity Restrictions/Additional Instructions:
Call for fevers (>100.5), nausea or vomiting, worsening abdominal pain, yellowing of the eyes or skin
MRI abdomen outpatient
Referrals:
Leana Baldwin MD [Family Provider] - in less than 1 week
Wayne De Souza MD [Active] - in two to four weeks
Prescriptions:
New
acetaminophen 325 mg tablet
650 mg PO Q4HPRN PRN (Reason: mild pain) Qty: 1 0RF
ibuprofen 200 mg tablet
400 - 600 mg PO Q6HPRN PRN (Reason: moderate pain) Qty: 1 0RF
oxycodone 5 mg tablet
5 mg PO Q4HPRN PRN (Reason: breakthrough/severe pain) Qty: 10 0RF
Continued
cyanocobalamin (vitamin B-12) 1,000 mcg Tablet
1,000 mcg PO DAILY
magnesium 200 mg Tablet
200 mg PO HS
cholecalciferol (vitamin D3) 25 mcg (1,000 unit) Tablet
25 mcg PO DAILY
omega 1-mda-wbs-fish oil [Fish Oil] 1,000 (120-180) mg Capsule
1 cap PO DAILY
Discharge Orders:
Discharge Patient (As Directed); Ordered 07/22/24
Ordered By: Torey Kline
Discharge Date and Time
Discharge Date/Time: 07/22/24 14:54
Print Language: GREENLANDIC
[2024-07-22] MEDS: ROXICODONE 5 MG PO (12:46)
--- NOTE | 2024-07-22 14:24 | PTCARENOTE ---
Patient discharged home. This RN removed patient's tele pack, IV removed by Shena JOHNSON. Discharge instructions/medications reviewed with patient who verbalized understanding. Patient dressed independently, belongings gathered independently and taken
down to spouse's car by spouse. Patient being transported home by spouse, patient taken down to car via staff escort and wheelchair. Copy of labs given to patient prior to DC.
== END 2024-07-22 14:54 | disposition home or self-care (01) ==
LOC: PACU 22:53
PROVIDERS: Clinical Nurse Specialist Family Health; Internal Medicine; Student in an Organized Health Care Education/Training Program; CONSULT PHYSICIAN Surgery; EMERGENCY PHYSICIAN Emergency Medicine; FAMILY PHYSICIAN Emergency Medicine
DX: K80.10 Calculus of gallbladder with chronic cholecystitis without obstruction (principal)
CPT/HCPCS: 47563; 88304; 74300; 76000; 76705; 80053; 81003; 81015; 82533; 83690; 83735; 84439; 84443; 84703; 85025; 87086; 93005; 96361; 96365; 96375; 99285; J1610

== ENCOUNTER → 2024-09-06 07:20 | Outpatient (REF) | payer OTHER, SELFPAY | LOC: PAVMRI 07:20 | PROVIDERS: ATTENDING PHYSICIAN Emergency Medicine | DX: R93.5 Abnormal findings on diagnostic imaging of other abdominal regions, including retroperitoneum (principal) | CPT/HCPCS: 74183; A9575 ==

== ENCOUNTER → 2025-05-22 06:36 | Outpatient (REF) | payer OTHER, SELFPAY | LOC: WDC 06:36 | PROVIDERS: ATTENDING PHYSICIAN Obstetrics & Gynecology Gynecology; FAMILY PHYSICIAN Emergency Medicine | DX: Z12.31 Encounter for screening mammogram for malignant neoplasm of breast (principal) | CPT/HCPCS: 77063; 77067 ==

== ENCOUNTER → 2025-08-06 08:14 | Outpatient (REF) | payer OTHER, SELFPAY | LOC: PAVMRI 08:14 | PROVIDERS: ATTENDING PHYSICIAN Specialist; FAMILY PHYSICIAN Emergency Medicine | DX: R20.0 Anesthesia of skin (principal) | CPT/HCPCS: 70553; A9575 ==

== ENCOUNTER → 2025-09-13 18:11 | Outpatient (REF) | payer OTHER, SELFPAY | LOC: MRI 3T 18:11 | PROVIDERS: ATTENDING PHYSICIAN Specialist; FAMILY PHYSICIAN Emergency Medicine | DX: G95.9 Disease of spinal cord, unspecified (principal) | CPT/HCPCS: 72156; A9575 ==